=== PATIENT | female | born 1960 | race Caucasian/White ===

== ENCOUNTER 2022-03-30 10:11 | Emergency (ER) | payer BC, SELFPAY ==
--- NOTE | ~2022-03-30 | XR_ITS ---
XR hip RT 2V w AP pelvis DATE: 03/30/2022 11:32 INDICATION: Hip and groin pain for 2 months TECHNIQUE: AP pelvis. AP and lateral views of right hip COMPARISON: None FINDINGS: No pelvic fracture or bone destruction. Normal alignment at the pubic symphysis and sacroil iac joints. Mild to moderate bilateral hip osteoarthritis. No fracture or dislocation, avascular necrosis or bone destruction of the right hip. There is some ossification along the left iliolumbar ligament. Degenerative disc disease at L5-S1. IMPRESSION: Mild to moderate bilateral hip osteoarthritis Reviewed, dictated and finalized at location A. CIPAL IOS DEVELOPER
[2022-03-30 10:44] VITALS: BP 144/77; PULSE 90; RESP 16; TEMP 36.3; O2SAT 99
[2022-03-30] MEDS: HYDROcodone/acetaminophen (*CRX) 5-325 MG TABLET 1 TAB PO (11:26)
--- NOTE | 2022-03-30 12:54 | ED.EXTPRO ---
HPI - Extremity Problem General Chief complaint: Extremity Problem,Nontraumatic Stated complaint: R. thigh pain Time Seen by Provider: 03/30/22 11:09 History of Present Illness HPI Narrative: Patient is a 62-year-old female who presents ER with pain to the right proximal thigh. Ongoing over the last month. Worse with pulling her knee up and externally rotating. Also radiates around to her right hip. No known trauma. No numbness or tingling to lower extremity. No new lower extremity swelling. Has tried [id number] medication without improvement. New to the area and does not have a PCP. Related Data Allergies Allergy/AdvReac Type Severity Reaction Status Date / Time Penicillins Allergy Unknown Verified 03/30/22 11:17 tetracycline Allergy Unknown Verified 03/30/22 11:17 Review of Systems Review of Systems: All systems reviewed & are unremarkable except as noted in HPI and below Constitutional: Constitutional: Denies chills and Denies fever(s) Musculoskeletal: Musculoskeletal: Denies back pain, Reports arthralgias and Denies joint swelling Integumentary/Breasts: Skin/Breast: Denies pruritus, Denies erythema and Denies rash Neurologic: Denies focal weakness and Denies numbness PMFSH Past Medical History Medical History (Updated 03/30/22 @ 18:27 by Husam Ray MD) Healthy female adult Surgical History Surgical History (Updated 03/30/22 @ 18:27 by Husam Ray MD) History of hysterectomy Social History Social History (Updated 03/30/22 @ 18:27 by Husam Ray MD) Smoking status: Never smoker Exam Narrative: GENERAL: Well-appearing, well-nourished, and in no acute distress. HEAD: Normocephalic, atraumatic. CHEST: Clear to auscultation. No respiratory distress. HEART: Regular rate and rhythm. Normal peripheral pulses. ABDOMEN: Soft, nontender, nondistended. Tender over the right inguinal region without hernia. Normal external inspection. EXTREMITIES: Normal range of motion. No edema. Mild tenderness of the proximal hip musculature at the inguinal crease without palpable deformity/mass. SKIN: Warm, dry, no rash. NEURO: No focal deficits. Alert and oriented x3. PSYCH: Normal mood and affect. Course Course Emergency Course: Discussed results. Needs follow-up with PCP. Chronic issue. Vital Signs Vital signs: Vital Signs Temperature 97.3 F L 03/30/22 10:44 Pulse Rate 90 03/30/22 10:44 Respiratory Rate 16 03/30/22 10:44 Blood Pressure 144/77 H 03/30/22 10:44 Pulse Oximetry 99 03/30/22 10:44 Oxygen Delivery Room Air 03/30/22 10:44 Temperature 97.3 F L 03/30/22 10:44 Pulse Rate 90 03/30/22 10:44 Respiratory Rate 16 03/30/22 10:44 Blood Pressure 144/77 H 03/30/22 10:44 Pulse Oximetry 99 03/30/22 10:44 Oxygen Delivery Room Air 03/30/22 10:44 MDM - Extremity (Nontraumatic) Imaging Data Radiologist's impression: ITS Impressions Hip/Pelvis X-Ray 03/30/22 11:35 IMPRESSION: Mild to moderate bilateral hip osteoarthritis Discharge Plan Discharge Clinical Impression: Strain of flexor muscle of right hip Patient Disposition: Home, Self-Care Condition: Stable Instructions: Muscle Strain (ED) Additional Instructions: Return the ER if you suffer new injury, you have new numbness or tingling to your lower extremity, your lower extremity is cold and blue, or you have additional concerns. Prescriptions: New methylprednisolone [Medrol (Mateo)] 4 mg tablets,dose pack See Rx Instructions .ROUTE .COMPLEX Qty: 21 0RF Rx Instructions: orally per package directions hydrocodone-acetaminophen 5-325 mg tablet 1 tablet PO Q6H PRN (Reason: pain) Qty: 12 0RF Follow-up/Referrals: PHYSICIAN,FURNITURE SERVICER [Primary Care Provider] - Anya Thompson DO [Physician] - 1 Week
== END 2022-03-30 14:01 | disposition home or self-care (01) ==
PROVIDERS: Emergency Provider Emergency Medicine
DX: S76.011A Strain of muscle, fascia and tendon of right hip, initial encounter (principal); Z90.710 Acquired absence of both cervix and uterus; X58.XXXA Exposure to other specified factors, initial encounter
CPT/HCPCS: 73502; 99283; A9270

== ENCOUNTER 2023-05-08 08:20 | Outpatient (CLI) | payer BC, SELFPAY ==
--- NOTE | ~2023-05-08 | XR_ITS ---
EXAMINATION: XR lg joint inject/asp w image, XR lg joint inject/asp add DATE: 05/08/2023 10:05 INDICATION: Bilateral hip osteoarthritis TECHNIQUE: A time-out was performed to verify the patient's name, date of , and procedure to b e performed. The procedure including the risks, benefits, and alternatives was discussed with the pat ient. Risks discussed included bleeding and infection. The patient understood the risks and agreed to proceed. Attention was first turned to the left hip joint. The skin overlying the left hip joint was prepped and draped in usual sterile fashion. Anesthetic was administered with 1% lidocaine subcutan eously. A 22 G needle was advanced under fluoroscopic guidance into the joint. Injection of 1 mL of Omnipaque 240 confirmed intra-articular position of the needle. Subsequently, injectate consisting of 3 mL of a 2:1 mixture of 0.5% Marcaine: 80 mg/mL Depo-Medrol was instilled. Washout of contrast wa s seen confirming intra-articular administration. The needle was removed and the entry site was clean ed and dressed. The patient was then repositioned on the table and attention was then turned to the right hip joint. The skin overlying the right hip joint was prepped and draped in usual sterile fashion. Anesthetic w as administered with 1% lidocaine subcutaneously. A 22 G needle was advanced under fluoroscopic guid ance into the joint. Injection of 1 mL of Omnipaque 240 confirmed intra-articular position of the ne edle. Subsequently, injectate consisting of 3 mL of a 2:1 mixture of 0.5% Marcaine: 80 mg/mL Depo-Me drol was instilled. Washout of contrast was seen confirming intra-articular administration. The needl e was removed and the entry site was cleaned and dressed. There were no immediate complications. The combined fluoroscopy exposure time for both procedures was 0.2 minutes. The total number of images wa s 4. Total DAP was 0.799 Gycm^2 FINDINGS: Real-time fluoroscopy demonstrates the needle and contrast in the left hip joint. Subsequen t images demonstrate needle and contrast in the right hip joint. Patient's pain prior to procedure:5/ 10 in the right hip and 6/10 in the left hip. Patient's pain following the procedure: 1/10 in both h ips. IMPRESSION: 1. Successful left hip joint injection of local anesthetic and steroid with decrease in the patient's presenting pain. 2. Successful right hip joint injection of local anesthetic and steroid with decrease in the patient' s presenting pain. Reviewed, dictated and finalized at location A. N SERVICE SPECIALIST IMPRESSION: 1. Successful left hip joint injection of local anesthetic and steroid with dec rease in the patient's presenting pain. 2. Successful right hip joint injection of local anesthetic and steroid with de crease in the patient's presenting pain.
== END 2023-05-08 08:21 | disposition home or self-care (01) ==
PROVIDERS: Visit Provider Nurse Practitioner Family
DX: M16.0 Bilateral primary osteoarthritis of hip (principal)
CPT/HCPCS: 20610; 77002; J1040

== ENCOUNTER 2023-10-29 10:36 | Outpatient (CLI) | payer BC, SELFPAY ==
[2023-10-29 11:11] LABS: Basophils Percent Auto 0.6 % (0.2-1.2); Eosinophils Absolute Auto 0.2 K/mm3 (0-0.3); Eosinophils Percent Auto 2.8 % (0-4.4); Hematocrit 41.1 % (37.0-47.0); Hemoglobin 13.9 g/dL (12.0-15.0); Immature Granulocyte Absolute 0.01 K/mm3 (0.00-0.031); Immature Granulocyte Percent A 0.1 % (0-0.5); Lymphocytes Absolute Auto 2.89 K/mm3 (0.9-3.2); Lymphocytes Percent Auto 43.1 % (18.3-44.2); Mean Corpuscular HGB Conc 33.8 g/dl (32-36); Mean Corpuscular Hemoglobin 31.6 pg (26-34); Mean Corpuscular Volume 93.4 fl (80-100); Mean Platelet Volume 10.4 fl (7.4-10.4); Monocytes Absolute Auto 0.4 K/mm3 (0.1-0.6); Monocytes Percent Auto 6.6 % (2.6-8.5); Neutrophils Absolute Auto 3.1 K/mm3 (1.3-6.7); Neutrophils Percent Auto 46.8 % (45.5-73.1); Platelet Count Result 323 k/mm3 (150-375); Red Cell Distribution Width 12.1 % (11.5-14.5); White Blood Count 6.7 K/mm3 (4.5-10.0)
--- NOTE | 2023-10-29 11:11 | ECG_ITS ---
Test Date: 2023-10-29 11:15:57 Measurements Intervals Brady Rate: 64 P: 11 MA: 203 QRS: 17 QRSD: 105 T: 30 QT: 418 QTc: 434 Interpretive Statements SINUS RHYTHM LOW QRS VOLTAGE [QRS DEFLECTION < 0.5/1.0 mV IN LIMB/CHEST LEADS] No previous ECG available for comparison Electronically Signed On 10-29-2023 13:38:08 CDT by Bonnie Dugan M.D.
[2023-10-29 11:13] LABS: Appearance Urine Clear (Clear); Bilirubin Urine Negative (Negative); Blood Urine Negative (Negative); Color Urine Yellow (Yellow); Glucose Urine UA Negative (Negative); Ketones Urine Negative (Negative); Leukocyte Esterase Ur Negative LEU/UL (Negative); Nitrate Urine Negative (Negative); Protein Urine Negative (Negative); Specific Grav Ur 1.015 (1.001-1.035); Urobilinogen Urine 0.2 mg/dL (<2.0); pH Urine 5.5 (5.0-9.0)
[2023-10-29 11:22] LABS: Add Urine Microscopic? NO
[2023-10-29 11:32] LABS: Anion Gap 7 mmol/L (4-12); Blood Urea Nitrogen 17 mg/dL (7-17); Calcium 9.2 mg/dL (8.4-10.2); Carbon Dioxide 28 mmol/L (22-30); Chloride 105 mmol/L (98-107); Estimated Glomerular Filt Rate > 60; Glucose 95 mg/dL (65-110); Potassium 3.7 mmol/L (3.4-5.0); Sodium 140 mmol/L (137-145)
== END 2023-10-29 10:37 | disposition home or self-care (01) ==
LOC: ANHLAB 10:37
PROVIDERS: Visit Provider Orthopaedic Surgery
DX: I10 Essential (primary) hypertension (principal); R53.83 Other fatigue
CPT/HCPCS: 36415; 80048; 81003; 85025; 93005

== ENCOUNTER 2023-12-02 13:47 | Outpatient (CLI) | payer BC, SELFPAY ==
[2023-12-02 15:12] LABS: Albumin Level 4.4 g/dL (3.5-5.1)
[2023-12-02 15:13] LABS: INR 0.9; Prothrombin Time 12.5 Seconds (11.1-14.7)
[2023-12-02 15:14] LABS: Partial Thromboplastin Time 27.2 Seconds (22.3-36.8)
[2023-12-02 15:19] LABS: Urine Cotinine NEGATIVE
[2023-12-02 17:40] LABS: Hemoglobin A1C 5.8 % (<5.7)
[2023-12-02 18:09] LABS: MRSA (PCR) NOT DETECTED (NOT DETECTE)
== END 2023-12-02 13:48 | disposition home or self-care (01) ==
LOC: ANHSURGERY 13:56
PROVIDERS: Visit Provider Orthopaedic Surgery
DX: M16.12 Unilateral primary osteoarthritis, left hip (principal); Z01.818 Encounter for other preprocedural examination
CPT/HCPCS: 80307; 82040; 83036; 85610; 85730; 87641

== ENCOUNTER 2023-12-16 01:23 | Day surgery (SDC) | payer BC, SELFPAY ==
--- NOTE | 2023-12-02 13:43 | PC.NURSE ---
Report to the Outpatient Waiting Room, entrance under the green pavilion located off [facility], at time _06:00am on date __12/16/23 . Planned Procedure Time: ___07:30am . Time changes happen often and if your time is changed the preop area will call you the afternoon before. - You and your visitor will be asked to self-screen and do not enter if you have any COVID symptoms. - A mask is optional within the hospital at this time. Patients may have clear liquids (water, carbonated beverages, clear teas, apple juice) until 3 hours prior to surgery (04:30am) with a maximum of 20 ounces. - No food from midnight until time of surgery Take the following medications with a SIP of water the morning of surgery: none DO NOT STOP ANY OF YOUR OTHER PRESCRIPTION MEDICATIONS PRIOR TO SURGERY ?EXCEPT THE FOLLOWING Medications to discontinue per physician Pt to be instructed by Dr Lewis on use of NSAIDS/Celebrex prior to surgery Please no make-up, nail czech, hairspray, perfume, deodorant, or body powder the day of surgery. No jewelry (including any body piercings) or valuables the day of surgery, leave them at home. Please take a shower or bath the night before, or the morning of, surgery with an antibacterial soap. Wear comfortable, loose fitting clothing. Children are encouraged to wear pajamas. - Jewelry must be removed prior to entering the operating room. Rings and piercings that are not removed may be cut off. - The hospital will not accept responsibility for valuables. - Please leave all valuables, including medications, at home the day of surgery. If you are going home after surgery, a licensed transport truck driver must drive you home. - NO public transportation without another adult if you receive anesthesia. - We recommend that an adult stay with you for 24 hours following discharge. - We also recommend that you do not drive, make important decision, drink alcoholic beverages, or take any drugs that were not prescribed by your health care provider for at least 24 hours after your discharge time. Follow any additional instructions given to you from your surgeon. If you or anyone in your household have experienced Covid symptoms in the past week, please notify your surgeon or the nurse liaison at the phone number below for possible testing. Telephone instructions given to __Patient & and asked if any additional questions and then verbalized understanding. Patient advised to call surgeon office or pre surgery nurse liaison [phone] if any additional questions.
[2023-12-02 14:00] VITALS: BP 122/63; PULSE 68; RESP 16; TEMP 37.1; O2SAT 97; BMI 26.6
--- NOTE | 2023-12-15 17:44 | P.PNAN_ITS ---
Anes - Eval Pre Procedure Procedure: Operation Date: 12/16/23 07:30 Proposed Procedures p Left Total Hip Arthroplasty - Avtar Lewis MD Date/Time: 12/15/23 17:44 Pre Op Diagnosis: Lt Hip DJD Patient Data Age: 63 Gender: F Height: 1.57 m Weight: 66 kg Last Vital Signs Temp 37.1 C 12/02/23 14:00 Pulse 68 12/02/23 14:00 Resp 16 12/02/23 14:00 BP 122/63 12/02/23 14:00 Pulse Ox 97 12/02/23 14:00 O2 Del Method Room Air 12/02/23 14:00 Allergies Allergy/AdvReac Type Severity Reaction Status Date / Time Penicillins Allergy Intermediate Rash Verified 12/07/23 08: tetracycline Allergy Intermediate Rash Verified 12/07/23 08:31 Home Medications Medication Instructions Recorded Confirmed Type atorvastatin 10 mg tablet 10 mg PO DAILY 04/20/23 12/02/23 History estradiol 0.5 mg tablet 0.5 mg PO DAILY 04/20/23 12/02/23 History celecoxib 100 mg capsule 200 mg PO DAILY 12/02/23 12/02/23 History chlorhexidine gluconate 4 % 1 applic topical ONCE #237 mL 12/04/23 Rx topical liquid (Hibiclens) Patient hx anesthesia problems: other (had a rash that she thinks was from morphine) Family hx anesthesia problems: none Results Review: All pre-operative results and documents have been reviewed as part of the pre- operative evaluation. [facility] Past Medical History Medical History (Updated 12/15/23 @ 17:45 by Shelli Martin CRNA) DDD (degenerative disc disease) Degenerative joint disease (DJD) of hip GERD (gastroesophageal reflux disease) Healthy female adult HLD (hyperlipidemia) Left hip pain Right hip pain Surgical History Surgical History History of hysterectomy Family History Family History Unknown Cerebrovascular accident Hyperlipidemia Breast cancer Pancreatic cancer Sarcoma Throat cancer Social History Social History Social History: caffeine use Smoking status: Never smoker Additional smoking assessment comments: No use of any nicotine containing products Alcohol intake: current Drinks per week: 3 Substance use: never Living arrangements: with family Additional living arrangements comments: Occupation/Education: occupation Additional occupation/education comments: transportation mgr Gender identity (if verbalized by the patient): Female Spiritual care concerns: No Exam Day of Procedure 12/15/23 17:44
[2023-12-16] VITALS (14 sets, daily range): BP systolic 103–147; BP diastolic 56–78; PULSE 14–105; RESP 9–95; TEMP 36.1–37.1; O2SAT 93–100; BMI 26.6
--- NOTE | ~2023-12-16 | XR_ITS ---
EXAMINATION: XR hip LT min 2V DATE: 12/16/2023 11:00 INDICATION: Left hip arthroplasty. Postop. TECHNIQUE: 2 views of left hip were obtained. COMPARISON: Left hip radiographs 10/29/2023 FINDINGS: There is a total left hip arthroplasty in near-anatomic alignment. No fracture. There is ga s in the soft tissues, consistent with recent surgery. IMPRESSION: 1. Total left hip arthroplasty in near-anatomic alignment. Reviewed, dictated and finalized at location A.
--- NOTE | 2023-12-16 06:57 | WPDANESEPPF ---
Anes - Initial Pre Proc Eval Procedure: Operation Date: 12/16/23 07:30 Proposed Procedures p Left Total Hip Arthroplasty - Avtar Lewis MD Date/Time: 12/16/23 06:57 Surgeon: Avtar Lewis MD Pre Op Diagnosis: Lt Hip DJD Patient Data Age: 63 Gender: F Height: 1.57 m Weight: 66 kg Last Vital Signs Temp 98.7 F 12/02/23 14:00 Pulse 68 12/02/23 14:00 Resp 16 12/02/23 14:00 BP 122/63 12/02/23 14:00 Pulse Ox 97 12/02/23 14:00 O2 Del Method Room Air 12/02/23 14:00 Allergies Allergy/AdvReac Type Severity Reaction Status Date / Time Penicillins Allergy Intermediate Rash Verified 12/07/23 08:31 tetracycline Allergy Intermediate Rash Verified 12/07/23 08:31 Home Medications Medication Instructions Recorded Confirmed Type atorvastatin 10 mg tablet 10 mg PO DAILY 04/20/23 12/02/23 History estradiol 0.5 mg tablet 0.5 mg PO DAILY 04/20/23 12/02/23 History celecoxib 100 mg capsule 200 mg PO DAILY 12/02/23 12/02/23 History chlorhexidine gluconate 4 % 1 applic topical ONCE #237 mL 12/04/23 Rx topical liquid (Hibiclens) Patient hx anesthesia problems: other (had a rash that she thinks was from morphine) Family hx anesthesia problems: none Results Review: All pre-operative results and documents have been reviewed as part of the pre-operative evaluation. [facility] Past Medical History Medical History (Updated 12/15/23 @ 17:45 by Shelli Martin CRNA) DDD (degenerative disc disease) Degenerative joint disease (DJD) of hip GERD (gastroesophageal reflux disease) Healthy female adult HLD (hyperlipidemia) Left hip pain Right hip pain Surgical History Surgical History History of hysterectomy Family History Family History Unknown Cerebrovascular accident Hyperlipidemia Breast cancer Pancreatic cancer Sarcoma Throat cancer Social History Social History Social History: caffeine use Smoking status: Never smoker Additional smoking assessment comments: No use of any nicotine containing products Alcohol intake: current Drinks per week: 3 Substance use: never Living arrangements: with family Additional living arrangements comments: Occupation/Education: occupation Additional occupation/education comments: transportation mgr Gender identity (if verbalized by the patient): Female Spiritual care concerns: No Anes - Eval Final PreProcedure Day of Procedure 12/16/23 06:57 Patient weight: overweight Heart: regular rate and rhythm Lungs: clear to auscultation Airway: Mallampati scale class II Neurological: alert and oriented Last oral intake: >/= 8 hours ASA classification: II Emergent: no Anesthetic plan: proceed Anesthesia type and monitoring: general ETT and standard monitoring Results Review: All pre-operative results and documents have been reviewed as part of the pre-operative evaluation. Informed Consent: The patient's anesthetic plan and its attendant risks and benefits were discussed with the patient/family/POA. Questions were solicited and answers provided to the satisfaction of the patient/family/POA.
[2023-12-16] MEDS: LACTATED RINGERS 1,000 ML 30 ML IV CONT ×2 (07:01→10:30)
[2023-12-16] MEDS: ACETAMINOPHEN 500 MG TABLET 1000 MG PO (07:02)
[2023-12-16] MEDS: TRANEXAMIC ACID 1,000MG/ISO100 1,000 MG/100 ML BAG 200 MG IVPB (07:02)
--- NOTE | 2023-12-16 07:15 | WPDHPUPDATE1 ---
History and Physical Update Update Date/Time: 12/16/23 07:15 History and Physical has been reviewed, including an updated exam of the patient. There are NO changes in the patient's condition. Risks, benefits, and alternatives have been discussed and questions answered. Patient agrees to proceed with procedure.
[2023-12-16] MEDS: ceFAZolin 2 GM/D5W 50 ML 2 GM/50 ML BAG IVPB ×3 (07:28→23:46)
[2023-12-16] MEDS: SODIUM CHLORIDE 0.9% IV 37.7 ML, MORPHINE SULFATE INJ (*CRX) 2 MG, ROPivacaine HCL 1% 2... INFILTRATE (08:04)
[2023-12-16] MEDS: TRANEXAMIC ACID 1,000 MG/10 ML AMPUL 1000 MG IV PUSH (09:57)
--- NOTE | 2023-12-16 10:32 | W.PM.PROC2 ---
Procedure Note - Detailed Date of Procedure 12/16/23 Pre-op Diagnosis Lt Hip DJD Post-op Diagnosis Same Procedure Performed L ROSSY Surgeon Avtar Lewis MD Anesthesia General Description of Procedure THE PATIENT WAS TAKEN TO THE OPERATING ROOM IN STABLE CONDITION AND WAS PLACED IN THE LATERAL DECUBITUS AND THE LEFT LOWER EXTREMITY WAS PREPPED AND DRAPED IN THE STERILE FASHION. INCISION WAS MADE IN THE POSTERIOR LATERAL SIDE OF THE HIP, DOWN TO THE FASCIA LAYER. THE FASCIA WAS INCISED. THE HIP WAS EXPOSED. THE SHORT EXTERNAL ROTATORS WERE EXPOSED. THE SCIATIC NERVE WAS IDENTIFIED. INCISION WAS MADE THROUGH THE SHORT EXTERNAL ROTATORS AND THE CAPSULE OF THE HIP JOINT. THE HIP WAS DISLOCATED. AN OSTEOTOMY WAS MADE TO THE FEMORAL NECK ABOUT 1 CM PROXIMAL TO THE LESSER TROCHANTER. THE ACETABULUM WAS EXPOSED. THERE WAS SEVERE DJD SEEN. BEGINNING WITH A 44 REAMER THE ACETABULUM WAS REAMED TO 49 MM. A 49 MM TRIAL WAS PLACED IN 35 DEG OF ABDUCTION AND ANTEVERSION WAS IN ALIGNMENT WITH THE TRANS ACETABULAR LIGAMENT. THE FIT WAS EXCELLENT. THE TRIAL WAS REMOVED. A 50 MM BIOMET G7 COMPONENT WAS THEN TAPPED IN TO PLACE IN 35 DEG OF ABDUCTION AND ANTEVERSION IN ALIGNMENT WITH THE TRANSVERSE ACETABULAR LIGAMENT. THE FIT WAS EXCELLENT. THE ACETABULAR LINER WAS PLACED AND CHECKED FOR STABILITY. NEXT THE FEMUR WAS PREPARED WITH INITIAL CANAL FINDER THEN SEQUENTIAL BROACHING WITH A TAPERLOC HIP SYSTEM, UNTIL A 5 BROACH FIT WELL IN 15 OF ANTEVERSION. A -3 STANDARD OFFSET NECK WITH 36 MM HEAD TRIAL WAS PLACED. THE SHUCK TEST WAS EXCELLENT AND THE STABILITY IN FLEXION AND ROTATION WAS EXCELLENT. LEG LENGTHS WERE GROSSLY EQUAL. TRIALS WERE REMOVED. A BIOMET TAPERLOC 5 STEM WAS PLACED WITH A STANDARD OFFSET NECK. THE FIT WAS EXCELLENT IN 15 DEG OF ANTEVERSION. A -3 CERAMIC 36 MM FEMORAL HEAD WAS PLACED. THE HIP WAS TRIALED AND THE STABILITY WAS EXCELLENT WERE THE LEG LENGTHS AND THE SHUCK TEST. THE WOUND WAS IRRIGATED WITH STERILE BETADINE AND WATER FOR 3 MIN. THEN WASHED AGAIN. THE SCIATIC NERVE WAS IDENTIFIED AGAIN. THE CAPSULE AND THE EXTERNAL ROTATORS WERE APPROXIMATED WITH NUMBER 1 VICRYL. THE FASCIA WITH No 2 QUIL AND THE SUB CUTANEOUS LAYER WITH 2-0 ABSORBABLE SUTURE AND A RUNNING 3-0 SUBCUTICULAR STITCH FOR THE SKIN. DERMABOND WAS PLACED AND STERILE DRESSING WAS APPLIED. PATIENT WAS PLACED BACK ON TO THE SUPINE POSITION AND WAS EXTUBATED Estimated Blood Loss -150.0 Complications No immediate complications Condition Stable Disposition PACU
[2023-12-16] MEDS: KETOROLAC 30 MG/ML VIAL (*BKC) IV PUSH (10:36)
[2023-12-16] MEDS: HYDROmorphone HCL INJ (*CRX) 1 MG/ML SYR IV PUSH (10:42)
[2023-12-16] MEDS: fentaNYL CITRATE INJ (*CRX) 100 MCG/2 ML VIAL 25 MCG IV PUSH ×4 (11:05→11:12)
--- NOTE | 2023-12-16 12:10 | ADMGEN ---
This patient, Christy Centeno, was admitted to 3 [facility] Surg Room 303-01. Patient/family oriented to hospital policies and general routines including ID bracelet, bed and alarms, visiting hours, pain management, procedures, bathroom and other care routines, personal items, smoking policy, room service/diet, and visiting hours. Information on how to activate the Rapid Response Team has been discussed. Patient/Family are encouraged to report perceived risks to care and to ask questions if they do not understand what they are told or what they should do.
[2023-12-16] MEDS: SENNA/DOCUSATE SODIUM TABLET 2 TAB PO ×2 (13:09→17:08)
[2023-12-16] MEDS: polyethylene glycoL 3350 17 GM POWD.PACK PO (13:09)
[2023-12-16] MEDS: ASPIRIN 325 MG ENTERIC TABLET PO ×2 (13:09→20:52)
[2023-12-16] MEDS: FAMOTIDINE 20 MG TABLET PO ×2 (13:09→20:52)
[2023-12-16] MEDS: KETOROLAC 15 MG/ML VIAL (*BKC) IV PUSH ×3 (13:09→23:46)
[2023-12-16] MEDS: SODIUM CHLORIDE 0.9% IV 1,000 ML 125 ML IV CONT (13:10)
[2023-12-16] MEDS: oxyCODONE/ACETAMINOPHEN (*CRX) 5-325 MG TABLET 1 TABLET PO ×2 (15:13→20:52)
[2023-12-16] MEDS: ATORVASTATIN 10 MG TABLET PO (17:08)
[2023-12-16] MEDS: ACETAMINOPHEN 500 MG TABLET PO (17:08)
[2023-12-17 01:44] VITALS: BP 109/57; PULSE 98; RESP 14; TEMP 36.6; O2SAT 96
[2023-12-17] MEDS: oxyCODONE/ACETAMINOPHEN (*CRX) 10-325 MG TABLET 1 TAB PO ×2 (01:46→08:28)
[2023-12-17 05:47] VITALS: BP 126/98; PULSE 91; RESP 16; TEMP 36.6; O2SAT 98
[2023-12-17] MEDS: KETOROLAC 15 MG/ML VIAL (*BKC) IV PUSH ×2 (06:28→12:27)
[2023-12-17] MEDS: ceFAZolin 2 GM/D5W 50 ML 2 GM/50 ML BAG IVPB (06:28)
[2023-12-17 06:39] LABS: Basophils Percent Auto 0.1 % (0.2-1.2); Eosinophils Percent Auto 0.1 % (0-4.4); Hematocrit 31.7 % (37.0-47.0); Hemoglobin 10.7 g/dL (12.0-15.0); Immature Granulocyte Absolute 0.04 K/mm3 (0.00-0.031); Immature Granulocyte Percent A 0.4 % (0-0.5); Lymphocytes Absolute Auto 2.15 K/mm3 (0.9-3.2); Lymphocytes Percent Auto 19.1 % (18.3-44.2); Mean Corpuscular HGB Conc 33.8 g/dl (32-36); Mean Corpuscular Hemoglobin 32.6 pg (26-34); Mean Corpuscular Volume 96.6 fl (80-100); Mean Platelet Volume 10.5 fl (7.4-10.4); Monocytes Absolute Auto 0.9 K/mm3 (0.1-0.6); Monocytes Percent Auto 7.5 % (2.6-8.5); Neutrophils Absolute Auto 8.2 K/mm3 (1.3-6.7); Neutrophils Percent Auto 72.8 % (45.5-73.1); Platelet Count Result 275 k/mm3 (150-375); Red Blood Count 3.28 M/mm3 (4.2-5.4); Red Cell Distribution Width 12.5 % (11.5-14.5); White Blood Count 11.3 K/mm3 (4.5-10.0)
[2023-12-17 06:57] LABS: Anion Gap 10 mmol/L (4-12); Blood Urea Nitrogen 14 mg/dL (7-17); Calcium 8.5 mg/dL (8.4-10.2); Carbon Dioxide 26 mmol/L (22-30); Chloride 102 mmol/L (98-107); Estimated CRCL calculation 73 ml/min; Estimated Glomerular Filt Rate > 60; Glucose 120 mg/dL (65-110); Potassium 3.5 mmol/L (3.4-5.0); Sodium 138 mmol/L (137-145)
[2023-12-17] MEDS: SENNA/DOCUSATE SODIUM TABLET 2 TAB PO (08:09)
[2023-12-17] MEDS: ASPIRIN 325 MG ENTERIC TABLET PO (08:09)
[2023-12-17] MEDS: polyethylene glycoL 3350 17 GM POWD.PACK PO (08:09)
[2023-12-17] MEDS: FAMOTIDINE 20 MG TABLET PO (08:09)
[2023-12-17 09:47] VITALS: BP 101/66; PULSE 83; RESP 18; TEMP 36.9; O2SAT 98
--- NOTE | 2023-12-17 11:58 | PM.PNORT ---
Progress Note: A&P Assessment and Plan (1) S/P total hip arthroplasty: Qualifiers: Laterality: left Qualified Code(s): Z96.642 - Presence of left artificial hip joint Code(s): Z96.649 - Presence of unspecified artificial hip joint Status: Acute Assessment and Plan: POD #1 : Left ROSSY Continue PT/OT. WBAT. Walker. HIGH FALL RISK. Continue pain control. Ice Hip. Protect skin. DVT prophylaxis with Aspirin. SCDs. Incentive Spirometry Use reviewed. Monitor Dressing. Change prior to discharge. Bowel Regimen. Dispo: Home with Home Health pending progress with PT/OT Plan Reviewed history, exam, radiographs and current labs with attending MD and covering surgeon, Dr. Lewis, who agrees with current plan as indicated above. No further recommendations from Dr. Lewis at this time. Subjective Subjective Date/Time Seen: 12/17/23 11:58 Post Op day: 1 Interval history: POD #1: Left ROSSY Patient doing very well. Pain well controlled. Worked well with PT/OT. Hopeful for d/c home. Review of Systems Constitutional: Constitutional: Denies chills, Denies fatigue, Denies fever(s), Denies night sweats and Denies weakness Cardiovascular: Cardiovascular: Denies chest pain, Denies lightheadedness, Denies palpitations and Denies dyspnea Respiratory: Respiratory: Denies cough, Denies dyspnea and Denies wheezing Gastrointestinal: Gastrointestinal: Denies abdominal pain, Denies diarrhea, Denies nausea and Denies vomiting Musculoskeletal: Musculoskeletal: Reports arthralgias (left hip ), Reports joint swelling (left hip ) and Denies numbness Neurologic: Denies numbness and Denies weakness Endocrine: Endocrine: Denies fatigue and Denies palpitations Allergic/Immunologic: Allergic/Immunologic: Denies wheezing Exam Const: General: comfortable and no acute distress Orientation/consciousness: patient oriented x3 Limitations: no limitations Resp: Effort & Inspection: normal respiratory effort Cardio: Rate: regular rate Rhythm: regular rhythm GI: Inspection: non-distended Skin: General skin exam: normal color and wounds noted (incision left hip C/D/I ) Wounds: wounds noted (incision left hip C/D/I ) Neuro: General: patient oriented x3 Extrem: Left lower extremity: hip/thigh Details: tenderness Location: of the hip Location: laterally and anteriorly, swelling (thigh soft ) Location: of the hip (lateral. ), abnormal ROM (limitations with internal/external rotation and flexion/extension due to recent surgical intervention ) and other (incision lateral hip c/d/i. ), knee Details: normal to inspection and normal ROM; no tenderness and no swelling, lower leg (Negative Xena's Sign ) Details: no edema, ankle (+ankle dorsiflexion/plantarflexion ) Details: normal to inspection, no edema and normal ROM; no tenderness, no swelling and no warmth and foot Details: normal capillary refill, toes with normal ROM, vascular exam Details: dorsalis pedis pulse present and motor-sensory exam light-touch normal in all toes; no tenderness, no ecchymosis and no crepitus Psych: Mental Status: mental status grossly normal Affect: normal affect Objective Data Vital Signs Vital Signs: Vital Signs - 24 hr 12/16/23 13:49 12/16/23 13:53 12/16/23 12:20 Temperature 36.8 C Pulse Rate 86 Respiratory Rate 14 Blood Pressure 137/78 Pulse Oximetry 96 Oxygen Delivery Room Air Room Air 12/16/23 12:35 12/16/23 13:05 12/16/23 14:05 Temperature 36.7 C 36.8 C 36.1 C L Pulse Rate 94 100 92 Respiratory Rate 14 16 16 Blood Pressure 130/69 115/61 118/67 Pulse Oximetry 93 95 95 Oxygen Delivery 12/16/23 17:47 12/16/23 21:11 12/17/23 01:44 Temperature 36.3 C L 36.8 C 36.6 C Pulse Rate 105 H 14 L 98 Respiratory Rate 16 95 H 14 Blood Pressure 115/63 103/61 109/57 L Pulse Oximetry 98 95 96 Oxygen Delivery 12/17/23 05:47 12/17/23 09:47 12/17/23 08:10 Temperature 36.6 C 36.9 C Pulse Rate 91 83 Resp
--- NOTE | 2023-12-17 12:03 | PM.DS ---
DS: Admitting Diagnosis Discharge Date 12/17/2023 Admitting Diagnosis Left ROSSY DS: Discharge Diagnosis Discharge Diagnosis (1) S/P total hip arthroplasty: Qualifiers: Laterality: left Qualified Code(s): Z96.642 - Presence of left artificial hip joint Code(s): Z96.649 - Presence of unspecified artificial hip joint Status: Acute Assessment and Plan: POD #1 : Left ROSSY Continue PT/OT. WBAT. Walker. HIGH FALL RISK. Continue pain control. Ice Hip. Protect skin. DVT prophylaxis with Aspirin. SCDs. Incentive Spirometry Use reviewed. Monitor Dressing. Change prior to discharge. Bowel Regimen. Dispo: Home with Home Health pending progress with PT/OT Plan Reviewed history, exam, radiographs and current labs with attending MD and covering surgeon, Dr. Lewis, who agrees with current plan as indicated above. No further recommendations from Dr. Lewis at this time. DS: Summary Hospital Course Reason for hospitalization: Left ROSSY Hospital Course: 63 year old female admitted s/p Left ROSSY for postoperative medical management, pain control and mobilization with PT/OT. Patient progressed well with PT/OT. Pain and vitals remained stable throughout. The patient has been cleared to be discharged home with home health at this time. All discharge care instructions reviewed at depth. New medications reviewed. Follow up planned for 3 weeks in the outpatient orthopedic clinic with Dr. Lewis. Dr. Lewis in agreement with safe discharge at this time. Status at Discharge Functional status at discharge: uses cane/walker Overall status at discharge: patient is progressing back to baseline Time Spent with Patient Time attestation: Total time spent providing and/or coordinating discharge services: Exam Const: General: comfortable and no acute distress Orientation/consciousness: patient oriented x3 Limitations: no limitations Resp: Effort & Inspection: normal respiratory effort Cardio: Rate: regular rate Rhythm: regular rhythm GI: Inspection: non-distended Skin: General skin exam: normal color and wounds noted (incision left hip C/D/I ) Wounds: wounds noted (incision left hip C/D/I ) Neuro: General: patient oriented x3 Extrem: Left lower extremity: hip/thigh Details: tenderness Location: of the hip Location: laterally and anteriorly, swelling (thigh soft ) Location: of the hip (lateral. ), abnormal ROM (limitations with internal/external rotation and flexion/extension due to recent surgical intervention ) and other (incision lateral hip c/d/i. ), knee Details: normal to inspection and normal ROM; no tenderness and no swelling, lower leg (Negative Xena's Sign ) Details: no edema, ankle (+ankle dorsiflexion/plantarflexion ) Details: normal to inspection, no edema and normal ROM; no tenderness, no swelling and no warmth and foot Details: normal capillary refill, toes with normal ROM, vascular exam Details: dorsalis pedis pulse present and motor-sensory exam light-touch normal in all toes; no tenderness, no ecchymosis and no crepitus Psych: Mental Status: mental status grossly normal Affect: normal affect DS: Data Data Completed and Pending Labs on day of discharge: Labs from last 24 hours 12/17/23 05:53 WBC 11.3 H RBC 3.28 L Hgb 10.7 L D Hct 31.7 L MCV 96.6 MCH 32.6 MCHC 33.8 RDW 12.5 Plt Count 275 MPV 10.5 H Immature Gran % (Auto) 0.4 Neut % (Auto) 72.8 Lymph % (Auto) 19.1 Andrews % (Auto) 7.5 Eos % (Auto) 0.1 Baso % (Auto) 0.1 L Lymph # (Auto) 2.15 Andrews # (Auto) 0.9 H Eos # (Auto) 0.0 Baso # (Auto) 0.0 Abs Immat Gran (auto) 0.04 H Absolute Neuts (auto) 8.2 H Absolute Nucleated RBC 0.000 Nucleated RBC % 0.0 Sodium 138 Potassium 3.5 Chloride 102 Carbon Dioxide 26 Anion Gap 10 BUN 14 Creatinine 0.60 L Estim Creat Clear Calc 73 Estimated GFR > 60 Glucose 120 H Calcium 8.5 Discharge Plan Discharge Patient Disposition: Home Health Se
== END 2023-12-17 12:55 | disposition home health service (06) ==
LOC: ANHSURGERY 06:12 → ANH3MEDSUR 12:05
PROVIDERS: Visit Provider Orthopaedic Surgery
PROC: (CPT 27130; principal; 2023-12-16 07:30)
DX: M16.12 Unilateral primary osteoarthritis, left hip (principal); K21.9 Gastro-esophageal reflux disease without esophagitis; E78.5 Hyperlipidemia, unspecified; G89.29 Other chronic pain; Z98.890 Other specified postprocedural states; Z80.3 Family history of malignant neoplasm of breast; Z80.0 Family history of malignant neoplasm of digestive organs; Z80.1 Family history of malignant neoplasm of trachea, bronchus and lung; Z82.49 Family history of ischemic heart disease and other diseases of the circulatory system
CPT/HCPCS: 27130; 36415; 73502; 80048; 85025; 86850; 86900; 86901; 97110; 97116; 97161; 97165; 97530; 97535; A9270; C1776; J0171; J0330; J0690; J1100; J1170; J1885; J2250; J2270; J2371; J2405; J2704; J2795; J3010; J7030; J7120

== ENCOUNTER 2024-10-20 07:53 | Outpatient (CLI) | payer BC, SELFPAY ==
--- NOTE | ~2024-10-20 | DEXA_ITS ---
Bone Density Report Name: LEONARDO GUY Age: 64 Sex: Female Ethnicity: White Date of : 1960 Indication: postmenopausal; screening for osteoporosis; hysterectomy; Referring Provider: UNKNOWN, UNKNOWN Study: Bone densitometry was performed. Exam Date: October 20, 2024 Accession number: [id number] Bone Density: Region BMD T-score Z-score Classification AP Spine(L1-L4) 1.287 2.2 3.9 Normal Femoral Neck (Right) 1.001 1.4 2.9 Normal Total Hip (Right) 1.005 0.5 1.7 Normal World Health Organization criteria for BMD impression classify patients as: Normal (T-score at or above -1.0), Osteopenia (T-score between -1.0 and -2.5), or Osteoporosis (T-score at or below -2.5). 10-year Fracture Risk: FRAX not reported because: All T-scores for Spine Total, Hip Total, Femoral Neck at or above -1.0 Clinical Information Provided by Patient: Has used the following medications: HRT (i.e. estrogen/hormone therapy) Has the following medical conditions: Hysterectomy Patient maximum height was 62 Menopause Age: 48 Drinks caffeinated beverages Onset of menses at age 12 Number of children 1 Impression: The patient has normal bone mass. Discussion: BONE DENSITY IS ABOVE THE MINIMUM DESIRABLE LEVEL AT ALL SKELETAL SITES TESTED. This patient?s bone mineral density is above the minimum desirable level (T-score -1.0 or better) at all sites measured. The patient should follow a healthful lifestyle (good nutrition with adequate calcium and vitamin D, and appropriate weight-bearing exercise). Follow-Up: Consider repeating this study in 5 years or sooner if there is some new clinical indication. Reported by: WINNIE on 10/20/2024 8:44:00 AM. Reviewed, dictated and finalized at location A.
--- OUTSIDE RECORDS SUMMARY | 2024-10-20 08:04 | XMS_ITS | Continuity of Care Document ---
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 Role Phone Samm Perrin MD Unavailable Unavailable Allergies, Adverse Reactions, Alerts Substance Reaction Status Criticality oxycodone Rash(moderate)Rash(moderate) Active No Information tetracycline RashRash Active No Information amoxicillin RashRash Active No Information PENICILLIN Hives / Skin Rash Active No Informa tion Medications Medication Instructions Dosage Effective Dates (start - stop) Status Comments ATORVASTATIN 20 MG TABLET TAKE 1 TABLET BY MOUTH EVERY DAY - Active CELECOXIB 100 MG CAPSULE TAKE 2 CAPSULES BY MOUTH EVERY DAY - Active estradiol 1 mg tablet TAKE 1 TABLET BY M OUTH DAILY - Active Procedures Procedure Date Pt inelig neg scrn depres COMPREHEN METABOLIC PANEL CMP 4 LIPID PANEL VITAMIN D, 25-HYDROXY ROUTINE VENIPUNCTURE IMMUN ADMIN (INC PERCUTANEOUS) SINGLE, F IRST INJ INFLUENZA VIRUS VACCINE 0.5mL DOSAGE; IL ESERVATIVE FREE, IM USE OFFICE [id number] BODY MASS INDEX DOCD SYST BP LT 130 MM HG DIAST BP < 80 MM HG CBC, INC PLATELETS, NO DIFFERENTIAL COMPREHEN METABOLIC PANEL CMP 4 LIPID PANEL THYROID STIMULATION HORMONE(TSH) 2023 VITAMIN B12 (SERUM) VITAMIN D, 25-HYDROXY ROUTINE VENIPUNCTURE OFFICE [id number] BODY MASS INDEX DOCD SYST BP LT 130 MM HG DIAST BP 80-89 MM HG IMMUN ADMIN (INC PERCUTANEOUS) SINGLE, F IRST INJ Zoster Vaccine (HZV) (SHINGRIX), Intramu scular IMMUN ADMIN (INC PERCUTANEOUS) SINGLE, F IRST INJ Zoster Vaccine (HZV) (SHINGRIX), Intramu scular IMMUN ADMIN (INC PERCUTANEOUS) EACH ADDT L FLU VAC NO PRSV 4 VIRGINIE, 0.5mL DOSAGE OFFICE [id number] BODY MASS INDEX DOCD SYST BP LT 130 MM HG DIAST BP 80-89 MM HG Pt inelig neg scrn depres COMPREHEN METABOLIC PANEL CMP LIPID PANEL ROUTINE VENIPUNCTURE OFFICE [id number] BODY MASS INDEX DOCD SYST BP GE 130 - 139MM HG DIAST BP 80-89 MM HG OFFICE [id number] SYST BP LT 130 MM HG DIAST BP 80-89 MM HG Pt inelig neg scrn depres PREVENTATIVE-EST: 40-64 BODY MASS INDEX DOCD SYST BP LT 130 MM HG DIAST BP 80-89 MM HG Pt inelig neg scrn depres GENERAL HEALTH PANEL FERRITIN LEVEL IRON (FE), TOTAL TIBC, & % SATURATION VITAMIN B12 (SERUM) VITAMIN D, 25-HYDROXY ROUTINE VENIPUNCTURE OFFICE [id number] BODY MASS INDEX DOCD SYST BP >= 140 MM HG6 IT DIAST BP >= 90 MM HG Pt inelig neg scrn depres OFFICE [id number] BODY MASS INDEX DOCD SYST BP LT 130 MM HG DIAST BP >= 90 MM HG Advance Directives Directive Yes / No Effective Date File Name No Information Encounters Encounter Description Practice Location Reason(s) For Visit Diagnoses Date Provider Providers Copied on Encounter [facility], [address], [place], [place], [address] , tel: [phone] [facility] No Information 5 Aydin Quijano. [address], [place], [address] , . tel: [phone] [employer], [address], [place], [place], [address] , tel: [phone] [facility] No Information 5 Gary Rader. [address], [place], [address] , [place]. tel: [phone] [facility], [address], [place], [place], [address] , tel: [phone] [facility] No Information 5 Gary Rader. [address], [place], [address] , [place]. tel: [phone] [facility], [address], [place], [place], [address] , tel: [phone] [facility] Asymptomatic menopausal stateAsymptomatic menopausal state 4 Grademary Rader. [address], [place], [address] , . tel: [phone] OFFICE [facility], [address], [place], [place], [address] , tel: [phone] [facility] General (chief complaint)c hronic conditions (chief complaint)C hronic Conditions (chief complaint) Unspecified menopausal and perimenopausal disorderMixed hyperlipidemiaVitami n D deficiency, unspecifiedPostmenop ausalColon cancer screening 4 Gradel Dior. [address], [place], [address] , . tel: [phone] Referring Provider: Dior Vega, [address] [place], [address] . tel:[phone] [facility], [address], [place], [place], [address] , tel: [phone] [facility] Vitamin D deficiency 4 Gradel Dior. [address], [place], [address] , . tel: [phone] [facility], [address], [place], [place], [address] , tel: [phone] [facility] Vitamin D deficiency 4 Gradel Dior. [address], [place], [address] , . tel: [phone] OFFICE VHDBV-EDQ-VW TAILED [facility], [address], [place], [place], [address] , tel: [phone] [facility] Chronic Conditions (chief complaint)c ontinued (chief complaint)c hronic conditions (chief complaint) Unspecified menopausal and perimenopausal disorderMixed hyperlipidemiaOverac tive bladderPostmenopausa lColon cancer screeningOther fatigueWeight gain 4 Gradel Dior. [address], [place], [address] , . tel: [phone] Referring Provider: Dior Vega, [address] [place], [address] . tel:[phone] [facility], [address], [place], [place], [address] , tel: [phone] [facility] [place] Breast pain, left 4 Aydin Quijano. [address], [place], [address] , . tel: [phone] [facility], [address], [place], [place], [address] , tel: [phone] [facility] [place] Pain in right hipPain in left hip 3 Gradel Dior. [address], [place], [address] , [place]. tel: [phone] OFFICE MQSWQ-DYO-VU PANDED [facility], [address], [place], [place], [address] , tel: [phone] [facility] [place] Hip Pain (chief complaint) Pain in right hipPain in left hipOther chronic pain 3 Gradel Dior. [address], [place], [address] , . tel: [phone] Referring Provider: Samm Myles, [address] [place], [address] . tel:[phone] [facility], [address], [place], [place], [address] , tel: [phone] [facility] [place] Pain in right hipPain in left hip 3 Aydin Quijano. [address], [place], [address] , . tel: [phone] OFFICE OMDMC-JGM-ZM TAILED [facility], [address], [place], [place], [address] , [place] tel: [phone] [facility] [place] Chronic Conditions (chief complaint)a cute (chief complaint)c hronic conditions (chief complaint) Mixed hyperlipidemiaUnspec ified menopausal and perimenopausal disorderBody mass index [BMI] 27.0-27.9, adultOveractive bladderPain in right hipPain in left hipEncounter for screening mammogram for malignant neoplasm of breastAsymptomatic menopausal stateColon cancer screening 0- 3 Gradel Dior. [address], [place], [address] , [place]. tel: [phone] Referring Provider: Samm Myles, [address] [place], [address] . tel:[phone] OFFICE AYWZR-LSQ-JH PANDED [facility], [address], [place], [place], [address] , tel: [phone] [facility] Acute (chief complaint) COVID-19 2 Gradel Dior. [address], [place], [address] , . tel: [phone] Referring Provider: Samm Myles, [address] [place], [address] . tel:[phone] [employer], [address], [place], [place], [address] , tel: [phone] [facility] Malignant intraductal papillary mucinous neoplasm 2 Aydin Quijano. [address], [place], [address] , [place]. tel: [phone] [employer], [address], [place], [place], [address] , tel: [phone] [facility] Intraductal papillary mucinous neoplasm of pancreas 2 Aydin Quijano. [address], [place], [address] , [place]. tel: [phone] PREVENTATIVE -EST: 40-64 [facility], [address], [place], [place], [address] , tel: [phone] [facility] Chronics (chief complaint) Body mass index [BMI] 27.0-27.9, adultEncounter for screening mammogram for malignant neoplasm of breastHyperlipidemia , unspecified hyperlipidemia typeEncounter for screening for malignant neoplasm of colonAnnual physical examDupuytren contracture 1 Gary Rader. [address], [place], [address] , . tel: [phone] Referring Provider: Samm Myles, [address] [place], [address] . tel:[phone] OFFICE HCXXZ-ZRL-SM [employer] [facility], [address], [place], [place], [address] , tel: [phone] [facility] hair loss (chief complaint) Body mass index [BMI] 27.0-27.9, adultHair thinningOther fatigueWeight loss 1 Gary Rader. [address], [place], [address] , . tel: [phone] Referring Provider: Samm Myles, [address] [place], [address] . tel:[phone] OFFICE URXCN-TWX-YS [employer], [address], [place], [place], [address] , [place] tel: [phone] [facility] Medication Reaction (chief complaint) Body mass index (BMI) 27.0-27.9, adultHerpes zoster without complication 1 Aydin Quijano. [address], [place], [address] , . tel:[phone] Referring Provider: aSmm Myles, [address] [place], [address] . tel:[phone] Family History Family Member Type Diagnosis Age At Onset Mother Problem malignant neopla sm of breast in first degree relative Father Problem Unknown Immunizations Vaccine Date Status Comments Fluzone Trivalent, preservative free, split virus, 0.5mL dosage administered Source: New Immuniza tion Record SHINGRIX (Zoster vaccine recombinant, adjuvanted) administered Source: New Imm unization Record Fluzone Quad, preservative free, split virus, 0.5mL dosage administered Source: New Immuniza tion Record SHINGRIX (Zoster vaccine recombinant, adjuvanted) administered Source: New Imm unization Record Moderna COVID19 Vaccine, 0.5 mL per dose, 2 doses, administered 28 days apart administered Source: Other Provider Moderna COVID19 Vaccine, 0.5 mL per dose, 2 doses, administered 28 days apart administered Source: Other Provider Td (adult) absorbed and preservative free administered Source: Other Provid er SHINGRIX (Zoster vaccine recombinant, adjuvanted) pending Source: New Imm unization Record Payers Payer name Insurance type Covered green party ID Authoriza tion(s) BCBS ACCESS BL [id number] BCBS ACCESS BL [id number] BCBS ACCESS BL [id number] BCBS ACCESS BL [id number] BCBS ACCESS BL [id number] Social History Type Description Quantity Date Captured Comments Alcohol Use Details Unknown Caffeine Use Details Unknown Tobacco Use Status No Information Smoking Status No Information Sex Female Sexual Orientation Straight or heterosexual Gender Identity Female Chief Complaint And Reason For Visit No Information Reason For Referral Reason For Referral No Information Plan Of Treatment Date Type Action Status Goal Dietary manageme nt education, guidance, and counseling completed Goal Dietary manageme nt education, guidance, and counseling completed Goal Dietary manageme nt education, guidance, and counseling completed Goal Dietary manageme nt education, guidance, and counseling completed Referral Ordered: Screening colonoscopy Appointment date/timeframe: 07/12/2024 ordered Referral Ordered: US breast left limited Appointment date/timeframe: 08/21/2023 ordered Referral Ordered: Diagnostic bilateral mammogram Appointment date/timeframe: 08/21/2023 ordered Referral Ordered: MRI hip bilateral wo contrast Bilateral Appointment date/timeframe: 07/02/2023 ordered Referral Ordered: X-ray of both hips, five or more views ordered Referral Referred To: Rodri Lewis MD [address] [place], [phone] Ordered: Referrals: Orthopedic Surgery. Rodri Leiws MD. Evaluation/diagnostic/treatment - Level 3 ordered Referral Ordered: SCREENING MAMMOGRAM (CAD) Appointment date/timeframe: 01/11/2023 ordered Referral Ordered: DEXA of spine and hip Appointment date/timeframe: 01/11/2023 ordered Referral Ordered: X-ray of both hips including pelvis, three views total Appointment date/timeframe: 10/29/2022 ordered Referral Referred To: Physical Therapy Ordered: Referrals: Physical Therapy. Evaluate and treat - Level 2 ordered Referral Ordered: MRI pancreas w contrast Appointment date/timeframe: 12/07/2021 ordered Referral Ordered: MRI abdomen with and without contrast Appointment date/timeframe: 01/11/2022 ordered Referral Ordered: COLONOSCOPY, Flexible, Proximal To Splenic, Diagnostic, Wor W/O Collection Of Sp Appointment date/timeframe: 01/23/2022 ordered Referral Ordered: SCREENING MAMMOGRAM (CAD) Bilateral breast Appointment date/timeframe: 07/23/2021 ordered Unknown Immunization SHINGRIX (Zoster vaccine rec ombinant, adjuvanted) ordered History Of Present Illness Encounter Date Complaint History Of Prese nt Illness Chronic Conditions *See Chronic Conditions HPI chronic conditions *See Chronic Conditions HPI General Patient presents today for a 6MO Follow Up. Of note - She had L hip replacement on 12/16/23 and everything is going well. She is curious if she should still be taking her Vitamin D3 50,000 units, she has not taken it in months. She was unsure if she was supposed to refill or not. Last Colonoscopy: Would like to schedule in [place] by end of the yearLast Mammogram: 06/2023 Last DEXA: Never - order was faxed to [facility] in July chronic conditions *See Chronic Conditions HPI continued Last mammogram 2 /7/24 - NegativeDue for colonoscopy and DEXAPt has had a total hysterectomy for benign reasonsContinues with left hip pain, did have MRI, finished PT, and saw Ortho, they have recommended a hip replacement. No help with injections. She is treating symptoms with ibuprofen. She wants to hold off on surgery as long as she can. Does have to get up and stretch every so often to help prevent stiffness. Continues to do HEP and will give temporary relief for about an hour.also says she's tired all the time. Eats right, sticks to 1600 calories a day and ocntinues to gain weight. Has gained 4 pounds since 03/2023 and pt is not happy about this. Has not been as active due to hip pain, does not want to cut anymore calories. Sleeps about 7 hours a night but is up a lot due to hip pain. always feels drained. no snoring. Chronic Conditions *See Chronic Conditions HPI Hip Pain Patient presents today with c/o bilateral hip pain. This started last year. Reports that she went to the ED in [place] in Jun of last year and did go to PT for her hips due to finding arthritis in hips. She has been taking ibuprofen in the mornings. She has been doing the exercises that PT showed her trying to strengthen her hip flexures. Pain is worse when walking or walking up and down stairs (worse when walking up the stairs), or if the ground is uneven. Shooting pain down legs. No numbness, tinligng, or burning. This is an aching pain. She has been going to PT for the past 2 months. Did also try deep tissue massage as well with no relief. States pain will hit her so bad that it stops her in her tracks and is fearful she will fall. chronic conditions *See Chronic Conditions HPI acute Patient presents today with a c/o pubic pain and hip pain-sharp shooting pain more so on left. This has been going on for about a year. Aggravated by walking long distances, walking up stairs. Recently moved into a 2 story home and walking up the stairs is difficult. She did go the ED in [place] in March for this pain, states that they did do xray it was normal. She has been taking some of her hydrocodone prn that was prescribed from ED. She has been to chiro and has been doing some stretches that have seemed to help. Chronic Conditions *See Chronic Conditions HPI Acute Pt presents toda y via car visit with a c/o productive cough, sore throat, fevers up to 100.5, CARLISLE's, chest tightness. Denies vomiting, diarrhea, shortness of breath. Symptoms started yesterday. Positive COVID test this morning. She has been taking ibuprofen. No recent exposures. Pt is vaccinated. Was at a family birthday green party yesterday. Chronics Patient presents today to follow up for Hyperlipidemia. She is currently on Atorvastatin 20mg. Patient is not fasting today.Denies any chest pain/chest tightness, SOB, or Edema.She is not following a low fat/low cholesterol diet. She does exercise routinely.Patient is currently taking Estradiol. Hysterectomy 10+ Years Ago for benign reasons. Night Sweats.Patient is due for Mammogram, this has been orderedShe has not had a colonoscopy, is due for one hair loss Onset was two mo nths ago. Pt is reporting her hair line is receding, she states she has thick hair and states her hair is thin but having new growth at this time. In August pt hair smoothing treatment, 2 covid-19 shot and she had shingles outbreak on her back in November. She did take prednisone and had elevtaed BS realtaed to this. That is the only changes at this time. Pt states she is fatigued but nothing out of her normal. She is reporting she has lost 5 lbs in the last month, with no effort. Medication Reaction pt here toda y due for reaction from Acyclovir. pt was dx with shingles 11/05/2020 on back. pt was given a shot and then a 5 day prednisone course along with Acyclovir. pt reports her face was red and her blood sugars don't seem to be doing well since the medications. PT has been shaky, head feels foggy, face was swollen. pt is done with prednisone and has stopped the acyclovir. States that the lower part of her face chin down feels numbness. she feels extremely anxious. Functional Status Date Functional Assessmen t No Information Instructions Date Instruction Additional Infor mation An order for a DEXA was sent to [facility]. Please call [phone] to get this scheduled. Related to Colon cancer screening An order for a DEXA was sent to [facility]. Please call [phone] to get this scheduled. Related to Postmenopausal Control Uncertain. N o longer on vitamin D replacement, will repeat today. Related to Vitamin D deficiency, unspecified Stable. pt is on est radiol daily and wishes to continue same. She is aware of risks. Related to Unspecified menopausal and perimenopausal disorder Stable. Doing well o n current regimen. Check labs today. Continue current meds for now and will make adjustments as needed based on lab findings. Related to Mixed hyperlipidemia Pt interested in see ing dietitian. I provided contact information for Kerri Gilliam RDN. Related to Weight gain Check labs today. Pt is active and watches what she eats, typically around 1600 calories per day. Gets around 7 hours of sleep nightly. Does wake up quite a bit due to hip pain. Related to Other fatigue Stable. Doing well off of medica tion. Related to Overactive bladder Stable. Doing okay o n 0.5 mg of estradiol, discussed risks, will continue same. Related to Unspecified menopausal and perimenopausal disorder Stable. Doing well o n current regimen. Check labs today. Continue current meds for now and will make adjustments as needed based on lab findings. Related to Mixed hyperlipidemia I have faxed an orde r for a colonoscopy to [facility] in [place]. Please call [phone] to set up an appointment. Related to Colon cancer screening I have faxed an orde r for a bone density scan to [facility] in [place]. Please call [phone] to set up an appointment. Related to Postmenopausal Pt here today with c /o chronic bilateral hip pain, despite rest, ice, Tylenol/Motrin, HEP, PT, medication care manager, and deep tissue massage. No trauma, injury, or falls. I am going to order an xray of her bilateral hips. If needed we will proceed with MRI bilateral hips without contrast. She does have follow up appt scheduled for Ortho next month, 04/20. Related to Pain in right hip as above Related to Pain in left hip as above Related to Other chronic pain Discussed increased risk of breast cancer and cardiovascular disease with continued use of estradiol. We will try to decrease to 0.5 mg daily and see how you do. Related to Unspecified menopausal and perimenopausal disorder Continue efforts at diet and exercise. Related to Body mass index [BMI] 27.0-27.9, adult Please let me know w hen you are ready to schedule for colonoscopy. Related to Colon cancer screening I have faxed an orde r for a mammogram to [facility]. Please call [phone] to get this scheduled. Related to Encounter for screening mammogram for malignant neoplasm of breast I have faxed an orde r for a bone density scan to [facility]. Please call [phone] to get this scheduled. Related to Asymptomatic menopausal state as above. Related to Pain in left hip Symptomatic. Pt has tried HEP, NSAIDs, medication care manager, and massage with no relief. Will check xrays and start PT. Keep me updated on how you are doing. Related to Pain in right hip Stopped taking oxybu tynin and seems to be doing okay. Will continue to follow as needed. Related to Overactive bladder Stable. Doing well o n current regimen. Check labs today. Continue current meds for now and will make adjustments as needed based on lab findings. Related to Mixed hyperlipidemia Dietary management e ducation, guidance, and counseling Related to Body mass index (BMI) 27.0-27.9, adult Symptomatic. Symptom s started yesterday, positive home test today, Symptoms best controlled with ibuprofen PRn. Will also send in tessalon Perles to use as needed. Rest, push fluids, self isolate for 5 days. Mask for 5 days after. Call with any problems questions, or concerns. Related to COVID-19 Continue to monitor for now. Will refer to Dr Talley if symptoms worsen. Related to Dupuytren contracture Stable. Will return for blood work. Continue current meds for now and will make adjustments as needed based on lab findings. Related to Hyperlipidemia, unspecified hyperlipidemia type Colonoscopy ordered. Related to Encounter for screening for malignant neoplasm of colon Preventative. Normal exam today. Pt will return for fasting blood work. has updated her COVID and flu shots. Will get Shingrix after November. Update td in event of a wound. Related to Annual physical exam Stable. Related to Body mass index [BMI] 27.0-27.9, adult Screening mammogram ordered. Rel ated to Encounter for screening mammogram for malignant neoplasm of breast Dietary management e ducation, guidance, and counseling Related to Body mass index (BMI) 27.0-27.9, adult Check labs today. Of note, pt had a hair smoothing treatment in August, noticed thinning hair about a month after this. Address findings as indicated. Related to Hair thinning as above. Related to Weigh t loss Stable. Related to Body mass index [BMI] 27.0-27.9, adult Check labs today. Ad dress findings as indicated. Related to Other fatigue Dietary management e ducation, guidance, and counseling Related to Body mass index (BMI) 27.0-27.9, adult patient reassured th at all symptoms are likely sec to her steroids. should slowly improve as these get out of her system. call if not Related to Herpes zoster without complication Dietary management e ducation, guidance, and counseling Related to Body mass index (BMI) 27.0-27.9, adult Assessments Type Assessment Date No Information Patient Care Teams Name Effective Dates (start - stop) Status Members No Information
--- OUTSIDE RECORDS SUMMARY | 2024-10-20 08:04 | XMS_ITS | Clinical Summary ---
Author Organization [facility] Address [address] [place] [address] Phone Care Team Providers Care Buyer Grain Name Role Phone Provider, None Primary Care Provider Unavailabl e Allergies Active Allergy Reactions Criticality Noted Date Comments Penicillins Rash 03/28/2024 Tetracycline Rash 03/28/2024 Medications No known medications Active Problems No known active problems Social History Tobacco Use Types Packs/Day Years Used Date Smoking Tobacco: Never Smokeless Tobacco: Never Tobacco Cessation:Counseling Given: Not Answered Alcohol Use Standard Drinks/Week Comments Not Currently 0 (1 standard drink = 0.6 oz pur e alcohol) Sexually Active Control Partners Comments Not Currently Comments Unknown Sex and Gender Information Value Date Recorded Sex Assigned at Not on file Legal Sex Female 11:08 AM STEEL POST INSTALLER SUPERVISOR Gender Identity Not on file Sexual Orientation Not on file Last Filed Vital Signs Vital Sign Reading Time Taken Comments Blood Pressure 126/74 03/28/2024 11:17 AM STEEL POST INSTALLER SUPERVISOR Pulse 76 03/28/2024 11:17 AM STEEL POST INSTALLER SUPERVISOR Temperature 37.1 C (98.8 F) 03/28/2024 11:17 AM STEEL POST INSTALLER SUPERVISOR Respiratory Rate 18 03/28/2024 11:17 AM STEEL POST INSTALLER SUPERVISOR Oxygen Saturation 97% 03/28/2024 11:17 AM STEEL POST INSTALLER SUPERVISOR Inhaled Oxygen Concentration - - Weight - - Height - - Body Mass Index - - Plan of Treatment Health Maintenance Due Date Last Done Comments Hepatitis C Virus (HCV) Screening 1960 TdaP Immunization 1960 Pap Smear 02/26/1981 Cervical Cancer Screening (CCS) 02/26/1990 HPV/Cotest 02/26/1990 Colonoscopy 02/26/2005 Colorectal Cancer Screening 02/26/2005 Cologuard 02/26/2010 Immunochemical Fecal Occult Blood 02/26/2010 Mammogram 02/26/2010 Pneumococcal Immunization (5 0+ years) (1 of 1 - PCV) 02/26/2010 Influenza Immunization (#1) 2024 03/30/2023 SARS-COV-2 Immunization ( - 2023- season) 2024 Respiratory Syncytial Virus (RSV) Immunization (Adult) (1 - 1-dose 75+ series) 02/26/2035 Zoster Immunization Completed 07/13/2023, 03/30/2023 Hepatitis B Immunization Aged Out No longer eligible based on patient's age to complete this topic Meningococcal Immunization (ACWY) Aged Out No longer eligible b ased on patient's age to complete this topic Pneumococcal Immunization Combined Aged Out No longer eligible b ased on patient's age to complete this topic Rotavirus Immunization Aged Out No lo nger eligible based on patient's age to complete this topic Insurance [facility] Care Teams Buyer Grain Relationship Specialty Start Date End Date Provider, None [place] PCP - General 03/28/24
--- OUTSIDE RECORDS SUMMARY | 2024-10-20 08:04 | XMS_ITS | Clinical Summary ---
Author Organization [facility] Address [address] [place] [address] Care Team Providers Care Knobber Name Role Phone Samm Perrin MD Primary Care Provider [phone] Allergies Active Allergy Reactions Criticality Noted Date Comments Amoxicillin Rash Low 08/18/2011 Penicillins Hives,Rash High 08/18/2011 Tetracycline Rash Low 05/01/2014 Medications mirabegron (MYRBETRIQ) 25 mg Extended Release 24 hour tabletIndications:O AB (overactive bladder) Take 1 Tablet (25 mg) by mouth daily. 90 Tablet 3 0 Active atorvastatin (LIPITOR) 20 mg tabletIndications:H yperlipidemia, unspecified hyperlipidemia type Take 1 Tablet (20 mg) by mouth daily. 90 Tablet 0 Active oxybutynin chloride (DITROPAN XL) 10 mg Extended Release 24 hour tablet Take 1 Tablet (10 mg) by mouth daily. 90 Tablet 3 0 Active predniSONE (DELTASONE) 10 mg tabletIndications:C hronic right shoulder pain 4 pills daily x 3 days, 3 pills daily x 3 days, 2 pills daily x 2 days, 1 pill daily x 2 days. 27 Tablet 1 Active estradioL (ESTRACE) 1 mg tabletIndications:M enopausal and female climacteric states TAKE 0.5 TABLETS (0.5 MG) BY MOUTH DAILY. 45 Tablet 1 Active Active Problems Patient Care Coordination No te Formatting of this note migh t be different from the original. [facility] 02-25-19 May speak with Arden Centeno, spouse. Problem Noted Date Diagnosed Date Neck mass 07/25/2020 Acute pain of right shoulder 07/25/2020 Impingement syndrome, shoulder, right 07/25/2020 Immunizations Immunization Administration Dates Next Due (TDVAX)(7 YRS UP) TETANUS AN D DIPHTHERIA TOXOIDS, ADSORBED (2 LF OF TETANUS TOXOID AND 2 LF OF DIPHTHERIA TOXOID), 0.5ML (PF), IM 05/01/2011 Family History Medical History Relation Name Comments Cancer Father Breast Cancer Maternal Aunt 1 Breast Cancer Mother Positive respo nses - see media tab Stroke Mother Ovarian Cancer Neg Hx Relation Name Status Comments Brother 1 Alive Brother 2 Alive Father Maternal Aunt 1 Maternal Aunt 2 Mother Social History Tobacco Use Types Packs/Day Years Used Date Smoking Tobacco: Never Smokeless Tobacco: Never Alcohol Use Standard Drinks/Week Comments No 0 (1 standard drink = 0.6 oz pur e alcohol) 2 weekly Comments No Sex and Gender Information Value Date Recorded Sex Assigned at Not on file Legal Sex Female 1:28 PM WOODEN SHADE HARDWARE INSTALLER Gender Identity Not on file Sexual Orientation Not on file Occupation Industry Job Start Date Job End Date Not on file Not on file Not on file Not on file Last Filed Vital Signs Vital Sign Reading Time Taken Comments Blood Pressure 132/80 04/17/2021 8:58 AM WOODEN SHADE HARDWARE INSTALLER Pulse 84 04/17/2021 8:58 AM WOODEN SHADE HARDWARE INSTALLER Temperature 36.2 C (97.1 F) 06/01/2020 10:44 AM WOODEN SHADE HARDWARE INSTALLER Respiratory Rate 14 04/17/2021 8:58 AM WOODEN SHADE HARDWARE INSTALLER Oxygen Saturation 98% 04/17/2021 8:58 AM WOODEN SHADE HARDWARE INSTALLER Inhaled Oxygen Concentration - - Weight 65.8 kg (145 lb) 04/17/2021 8:58 AM WOODEN SHADE HARDWARE INSTALLER Height 157.5 cm (5' 2) 04/17/2021 8:58 AM WOODEN SHADE HARDWARE INSTALLER Body Mass Index 26.52 04/17/2021 8:58 AM WOODEN SHADE HARDWARE INSTALLER Plan of Treatment Health Maintenance Due Date Last Done Comments COLORECTAL SCREENING 02/26/2005 Colorectal Cancer Screening 02/26/2005 FIT-DNA Q 3 years 02/26/2005 FIT/FOBT Q 1 year 02/26/2005 Flex Sig/CT Colonography Q 5 years 02/26/2005 ZOSTER VACCINE (1 of 2) 02/26/2010 DTAP/TDAP/TD VACCINES (1 - Tdap) 05/02/2011 05/01/20 11 BREAST CANCER SCREENING 03/22/2021 03/22/20 20, 03/04/2018, 01/03/2016 (Previously completed), Additional history exists INFLUENZA VACCINE (#1) 2023 02/02/2020 Preventative Visit- Commercial 05/04/2024 10/11/2012 , 08/18/2011 RSV VACCINE (60+ or ) (1 - 1-dose 75+ series) 02/26/2035 Procedures Procedure Name Priority Date/Time Associated Diagnosis Comments MAMMO 3D HILDA SCREEN BILAT W OR WO CAD Routine 03/22/2020 4:56 PM WOODEN SHADE HARDWARE INSTALLER Screening mammogram, encounter for from Last 3 Months or Most Recently Relevant to Health Maintenance Results * MAMMO SCRN BILAT 3D HILDA W OR WO CAD (03/22/2020 4:56 PM WOODEN SHADE HARDWARE INSTALLER) Anatomical Region Laterality Modality Breast Bilateral Mammography 03/22/2020 4:56 PM WOODEN SHADE HARDWARE INSTALLER Addenda Addendum by Natalie Sloan MD on 04/04/2020 7:35 AM WOODEN SHADE HARDWARE INSTALLER ADDENDUM: Prior mammograms from 04/20/2018 and 01/14/2017 were made available for comparison. No dominant mass, new suspicious clustered calcifications, skin thickening, or architectural distortion is identified in either breast. There has been no significant change since the previous mammogram. CAD was utilized. OVERALL FINAL ASSESSMENT: BI-RADS CATEGORY 1 : Negative RECOMMENDATION: Routine screening mammogram in one year. DICTATION LOCATION: [facility] Impressions 03/23/2020 10:32 AM WOODEN SHADE HARDWARE INSTALLER IMPRESSION: Prior mammograms are needed for comparison. An addendum will be issued once these are available for review. OVERALL FINAL ASSESSMENT: BI-RADS CATEGORY 0 - Incomplete: Needs prior mammograms for comparison. Narrative 03/23/2020 10:32 AM WOODEN SHADE HARDWARE INSTALLER BILATERAL SCREENING DIGITAL MAMMOGRAM WITH 3D TOMOSYNTHESIS AND CAD DATE: 03/22/2020 4:56 PM HISTORY: Routine screening. DICTATION LOCATION: [facility] TECHNIQUE: Full-field digital craniocaudal and mediolateral oblique projections of both breasts were obtained. Low-dose full-field digital breast tomosynthesis examination was performed with 2D and 3D acquisitions. Examination is read in conjunction with computer aided detection. COMPARISON: No prior studies are available for comparison. BREAST COMPOSITION: Heterogeneously dense, which limits the sensitivity of mammography. FINDINGS: Prior mammograms are needed for comparison. Procedure Note Krysten Mueller MD / Natalie Sloan MD - 03/23/2020 BILATERAL SCREENING DIGITAL MAMMOGRAM WITH 3D TOMOSYNTHESIS AND CAD DATE: 03/22/2020 4:56 PM HISTORY: Routine screening. DICTATION LOCATION: [facility] TECHNIQUE: Full-field digital craniocaudal and mediolateral oblique projections of both breasts were obtained. Low-dose full-field digital breast tomosynthesis examination was performed with 2D and 3D acquisitions. Examination is read in conjunction with computer aided detection. COMPARISON: No prior studies are available for comparison. BREAST COMPOSITION: Heterogeneously dense, which limits the sensitivity of mammography. FINDINGS: Prior mammograms are needed for comparison. IMPRESSION: Prior mammograms are needed for comparison. An addendum will be issued once these are available for review. OVERALL FINAL ASSESSMENT: BI-RADS CATEGORY 0 - Incomplete: Needs prior mammograms for comparison. Samm Perrin MD MAMMO ORDERABLES Edited Result - Final from Last 3 Months or Most Recently Relevant to Health Maintenance Insurance BS BLUE ACCESS/TRUE BLUE PPO Care Teams Knobber Relationship Specialty Start Date End Date Samm Perrin MD PCP - General Family Practice 05/01/14
--- OUTSIDE RECORDS SUMMARY | 2024-10-20 08:04 | XMS_ITS | Referral Summary ---
Author Organization [facility] Address [address] [place] [id number] Care Team Providers Care Ethnic Studies Professor Name Role Phone Samm Perrin MD Primary Care Provider [phone] Avtar Lewis MD Unavailable [phone] Allergies No known active allergies Active Problems Problem Noted Date Diagnosed Date Encounter for screening colonoscopy 06/08/2024 Social History Tobacco Use Types Packs/Day Years Used Date Smoking Tobacco: Never Assessed Comments Unknown Sex and Gender Information Value Date Recorded Sex Assigned at Not on file Legal Sex Female 10:20 AM CDT Gender Identity Not on file Sexual Orientation Not on file Plan of Treatment Upcoming Encounters Date Type Department Care Team (Late st Contact Info) Description 01/05/2025 10:00 AM CDT Hospital Encounter [address] [address] Rodrick Sosa DO [address] [facility] [address] [place] [address] 01/05/2025 10:00 AM CDT - 01/05/2025 10:30 AM CDT Surgery [address] [address] Rodrick Sosa DO [address] [facility] [address] [place] [address] COLONOSCOPY Scheduled Procedures Name Priority Associated Diagnoses Date/Ti me COLONOSCOPY Encounter for screening colonoscopy 01/05/2025 10:00 AM CDT Procedures Procedure Name Priority Date/Time Associated Diagnosis Comments SCREENING MAMMOGRAM BILATERAL W LOBITO Schedule Routine, Read Routine (OP Routine) 06/11/2024 8:39 AM CHRISTIAN MINISTRIES PROFESSOR Screening mammogram, encounter for from Last 3 Months or Most Recently Relevant to Health Maintenance Results * Screening Mammogram Bilateral W [place] (06/11/2024 8:39 AM CHRISTIAN MINISTRIES PROFESSOR) Anatomical Region Laterality Modality Breast Bilateral Mammography 06/12/2024 4:50 PM CHRISTIAN MINISTRIES PROFESSOR Impressions 06/12/2024 4:50 PM CHRISTIAN MINISTRIES PROFESSOR There is no mammographic evidence to suggest malignancy. The patient may continue screening mammography as per ACR guidelines. FINAL ASSESSMENT: BI-RADS Category 1: Negative. Electronically signed by: Radha Chicas M.D. Narrative 06/12/2024 4:50 PM CHRISTIAN MINISTRIES PROFESSOR EXAMINATION: BILATERAL SCREENING MAMMOGRAM WITH TOMOGRAPHY HISTORY: Screening. COMPARISON(S): 2023, 2019, and 2017 TECHNIQUE: Full-field 2D images and digital tomosynthesis images were obtained. CAD was utilized. BREAST PARENCHYMAL COMPOSITION: The breasts are heterogenously dense, which may obscure small masses. FINDINGS: There are no suspicious masses. No suspicious calcifications are seen. There is no unexplained architectural distortion. There is no skin thickening seen. There are no mammographically abnormal lymph nodes seen in the axillae or elsewhere. us Self Screening Mammogram IMG MAMMO PROCEDURES Fi nal Result from Last 3 Months or Most Recently Relevant to Health Maintenance Insurance [employer] OOS Care Teams Ethnic Studies Professor Relationship Specialty Start Date End Date Perrin, Samm Shar, MD [address] [place] [address] PCP - General Family Medicine 02/25/23 Avtar Lewis MD [address] [address] Referring Physician Orthopedic Surgery 03/30/23
--- OUTSIDE RECORDS SUMMARY | 2024-10-20 08:04 | XMS_ITS | Clinical Summary ---
Author Organization [facility] Address [address] [place] [phone] Care Team Providers Care Spoon Maker Name Role Phone Samm Perrin MD Primary Care Provider [phone] Avtar Lewis MD Unavailable [phone] Allergies No known active allergies Active Problems Problem Noted Date Diagnosed Date Encounter for screening colonoscopy 06/08/2024 Surgical History Surgery Date Site/Laterality Comments HYSTERECTOMY OOPHORECTOMY Family History Medical History Relation Name Comments Breast cancer Mother Breast cancer Mother's Sister post menopa usal Relation Name Status Comments Mother Mother's Sister Social History Tobacco Use Types Packs/Day Years Used Date Smoking Tobacco: Never Assessed Comments Unknown Sex and Gender Information Value Date Recorded Sex Assigned at Not on file Legal Sex Female 10:20 AM CDT Gender Identity Not on file Sexual Orientation Not on file Obstetrics History Para Term AB IAB SAB Ectopic Multiple Livin g Live Births 1 1 1 Date Outcome GA Total Labor Labor/2nd/3rd Weight Sex Type Anes PTL Delfina A1 A5 Name Clin Term Plan of Treatment Upcoming Encounters Date Type Department Care Team (Late st Contact Info) Description 01/05/2025 10:00 AM CDT Hospital Encounter [address] [address] Rodrick Sosa, [address] [facility] [place] [address] 01/05/2025 10:00 AM CDT - 01/05/2025 10:30 AM CDT Surgery [address] [address] Rodrick Sosa, DO [address] [facility] [place] [address] COLONOSCOPY Scheduled Procedures Name Priority Associated Diagnoses Date/Ti me COLONOSCOPY Encounter for screening colonoscopy 01/05/2025 10:00 AM CDT Health Maintenance Due Date Last Done Comments Colon Cancer Screening-Colonoscopy 1960 Depression Screening 1960 Hepatitis C Screening 1960 Hepatitis B Screening 02/26/1978 Regular Well Visit/Exam 18-64 02/26/1978 DTaP/Tdap/Td Vaccine (1 - Tdap) 05/02/2011 05/01/2011 Covid-19 Vaccine ( season) 2024 04/04/2021, 08/15/2020, 07/18/2020 Breast Cancer Screening-Mammogram 06/11/2025 06/11/2024, 06/10/2023, 03/22/2020, Additional history exists Zoster Vaccine Completed 07/13/2023, 03/30/2023 Influenza Vaccine Completed 02/29/2024, , 03/20/2021 Pneumococcal vaccine <65 Aged Out No longer eligible based on patient's age to complete this topic Procedures Procedure Name Priority Date/Time Associated Diagnosis Comments SCREENING MAMMOGRAM BILATERAL W LOBITO Schedule Routine, Read Routine (OP Routine) 06/11/2024 8:39 AM OINTMENT MILL TENDER Screening mammogram, encounter for from Last 3 Months or Most Recently Relevant to Health Maintenance Results * Screening Mammogram Bilateral W [place] (06/11/2024 8:39 AM OINTMENT MILL TENDER) Anatomical Region Laterality Modality Breast Bilateral Mammography 06/12/2024 4:50 PM OINTMENT MILL TENDER Impressions 06/12/2024 4:50 PM OINTMENT MILL TENDER There is no mammographic evidence to suggest malignancy. The patient may continue screening mammography as per ACR guidelines. FINAL ASSESSMENT: BI-RADS Category 1: Negative. Electronically signed by: Radha Chicas M.D. Narrative 06/12/2024 4:50 PM OINTMENT MILL TENDER EXAMINATION: BILATERAL SCREENING MAMMOGRAM WITH TOMOGRAPHY HISTORY: [...] Most Recently Relevant to Health Maintenance Insurance [employer] [facility] Address: [facility] [id number] [place] [address] Care Teams Spoon Maker Relationship Specialty Start Date End Date Samm Perrin MD [address] [place] [address] PCP - General Family Medicine 02/25/23 Avtar Lewis MD [address] [facility] [address] [place], [place] [id number] Referring Physician Orthopedic Surgery 03/30/23
== END 2024-10-20 07:54 | disposition home or self-care (01) ==
DX: Z78.0 Asymptomatic menopausal state (principal)
CPT/HCPCS: 77080

== ENCOUNTER 2024-12-30 06:51 | Outpatient (CLI) | payer BC, SELFPAY ==
--- NOTE | ~2024-12-30 | MR_ITS ---
EXAMINATION: MR lumbar spine wo con DATE: 12/30/2024 07:22 INDICATION: Lumbar radiculopathy with low back pain and right hip and leg pain TECHNIQUE: Magnetic resonance imaging (MRI) of the lumbar spine was performed without intravenous contrast. Sequences included sagittal T2-weighted FSE, sagittal T2-weighted FS FSE, sagittal T1-weighted FSE, and axial T2-weighted FSE. COMPARISON: None FINDINGS: 5 mm retrolisthesis L5 on S1. 2 mm retrolisthesis L3 on L4. Minimal likely physiologic anterior wedging at T12. Lumbar vertebral body heights are normal. Normal marrow signal. Moderate disc height loss at L5-S1. Minimal disc height loss at L3-L4. The conus medullaris terminates at L1-L2. There is normal signal in the caudal spinal cord. Paravertebral soft tissues are unremarkable. The following disc levels are specifically discussed: T12-L1: The disc does not extend beyond the endplate margin. There is marked right and mild left facet joint osteoarthritis. There is no neural foraminal stenosis. There is no central canal stenosis. L1-L2: The disc does not extend beyond the endplate margin. There is mild bilateral facet joint osteoarthritis. There is no neural foraminal stenosis. There is no central canal stenosis. L2-L3: Minimal bilateral foraminal zone disc protrusions. There is mild left and mild to moderate right facet joint osteoarthritis. There is minimal left neural foraminal stenosis. There is no central canal stenosis. L3-L4: Disc is mildly bulging superimposed small left foraminal zone disc protrusion. There is mild bilateral facet joint osteoarthritis. There is mild bilateral neural foraminal stenosis. There is mild central canal stenosis. L4-L5: Disc is mildly bulging There is moderate left and severe right facet joint osteoarthritis. There is mild to moderate bilateral neural foraminal stenosis. There is mild central canal stenosis. L5-S1: Annular fissure and small central disc extrusion with disc material extending couple millimeter caudal to the level of the superior endplate of S1. There is mild to moderate bilateral facet joint osteoarthritis. There is mild to moderate right and moderate to severe left neural foraminal stenosis. There is minimal central canal stenosis. IMPRESSION: 1. Moderate cervical spondylosis most notable for moderate to severe neural from stenosis on the left at L5-S1. Reviewed, dictated and finalized at location A. IMPRESSION: 1. Moderate cervical spondylosis most notable for moderate to severe neural fro m stenosis on the left at L5-S1.
== END 2024-12-30 06:52 | disposition home or self-care (01) ==
PROVIDERS: PCP Orthopaedic Surgery; Visit Provider Orthopaedic Surgery
DX: M54.16 Radiculopathy, lumbar region (principal); M43.02 Spondylolysis, cervical region; M48.02 Spinal stenosis, cervical region
CPT/HCPCS: 72148